=== PATIENT | male | born 1960 | race Caucasian/White ===

== ENCOUNTER 2021-12-20 08:35 | Observation (INO) ==
[~2021-12-20 08:35] MED LIST: LIDOCAINE 1% LOCAL 20 ML VIAL ONE
[2021-12-20] MEDS ORDERED: HEPARIN (PORCINE) 1000 UNIT/ML 10 ML (CATH LAB USE ONLY) ONE (08:50)
[2021-12-20] MEDS ORDERED: niCARdipine HCL INJ 2.5 MG/ML 10 ML AMP ONE (08:50)
[2021-12-20] MEDS ORDERED: MIDAZOLAM HCL 1 MG/ML 2ML VIAL ONE (08:50)
[2021-12-20] MEDS ORDERED: NITROGLYCERIN/D5W 100MCG/ML 20ML SYR ONE (08:51)
[2021-12-20] MEDS ORDERED: fentaNYL citrate 100 MCG/2 ML VIAL ONE (08:51)
--- NOTE | 2021-12-20 09:55 | History & Physical Bridge Note ---
Date of Service December 20, 2021 History & Physical Bridge Note I have examined the patient, reviewed the History & Physical and in the interval since the performance of the History & Physical I have noted the following changes of clinical significance: no changes noted I explained the risk, benefit and intent of the procedure to the patient and he is willing to proceed.
--- NOTE | 2021-12-20 09:55 | Pre Anesthesia Assessment ---
Date of Service December 20, 2021 Pre Sedation Assessment Vital Signs Temp Pulse Resp BP Pulse Ox 12/20/21 08:40 36.7 C 78 20 164/96 H 98 Pre-Sedation Airway Assessment Smoking Status: Former smoker Hx Sleep Apnea: No Short, Thick Neck: No Thyromental Distance: > or= 3.5 Finger Breadths Oral Cavity: + WNL Mallampati Class: II ASA: ASA2 NPO Status Date of Last Intake of Fluids: 12/19/21 Time of Last Intake of Fluids: 21:30 Date of Last Intake of Solid Food: 12/19/21 Time of Last Intake of Solid Foods: 21:30 Notes The planned sedation has been discussed with the patient. Informed Consent was obtained. I have identified the patient, determined the appropriateness of sedation and have assessed the patient immediately prior to the procedure. All medicine(s) and interventions are by my order.
[2021-12-20] MEDS ORDERED: BIVALIRUDIN 250 MG VIAL (CATH LAB ONLY) ONE (10:22)
[2021-12-20] MEDS ORDERED: ATROPINE SULFATE 0.1 MG/ML 10ML SYR IV ONE (10:24)
--- NOTE | 2021-12-20 10:41 | Cardiac Catheterization ---
Date of Service December 20, 2021 Cardiac Cath Report Cardiac Cath Report Procedure: 1. Left heart catheterization 2. Coronary angiography 3. Left ventriculogram History: This is a 61-year-old male patient with a strong family history of heart disease at an early age. Starting in June he has been having episodes of left chest and left arm discomfort with queasiness and diaphoresis. After few minutes his discomfort is usually gone. He has a ZIO monitor placed as an outpatient that showed bradycardia during these events and he was referred to electrophysiology who felt it best to exclude ischemic heart disease. He was referred for cardiac catheterization. Procedure summary: After informed consent was obtained patient was brought to the cardiac catheterization lab where access was obtained using a retrograde Salinger technique from the right femoral artery. Preformed 5 [place] diagnostic catheters were utilized for the coronary angiograms. A 5 [place] pigtail catheter was utilized for the left heart pressures and left ventriculogram. Following the procedure the patient underwent coronary intervention and was admitted in stable condition. ACC data: Start time 10:10 AM End time 10:30 AM Opening aortic pressure 125/94 Closing aortic pressure 144/87 LV pressure 137/4 Sedation 1 mg intravenous Versed IV fluid 100 cc normal saline Contrast 97 cc of Optiray Fluoroscopy time 5.8 minutes Radiation 695 mGy DAP 51.21 Das per centimeter squared Right dominant system AUC score 9 Coronary angiography: Selective injections into the left coronary artery revealed the left main trunk to be patent. The left circumflex artery is small. It has a small first marginal and a small second marginal. There are luminal regularities and at the origin of the second marginal there is a 50% eccentric stenosis. The LAD has nonobstructive disease proximal and mid with the remainder the artery being widely patent. There is a large first diagonal branch which is patent. Selective injections of the right coronary artery reveal it to be large and dominant. In the midportion of the right coronary artery there is a concentric 7080% stenoses. In the proximal right coronary artery there is nonobstructive disease reaching may be 30 to 50%. There is a posterior lateral branch distally in the right coronary artery that has a concentric 50 to 60% stenoses. Left ventriculogram: The left ventricle is of normal size with normal systolic function. Mitral valve is competent. The aortic root and ascending aorta have normal morphology and diameter. Summary: I believe the culprit lesion for this patient's symptoms is the mid right coronary artery stenosis. The right coronary artery is hyperdominant and I believe this is causing his symptoms. Recommendations: Coronary intervention on the right coronary artery.
[2021-12-20] MEDS ORDERED: CLOPIDOGREL BISULFATE 300 MG TAB ONE (11:07)
--- NOTE | 2021-12-20 11:09 | Post Anesthesia Assessment ---
Date of Service December 20, 2021 Post Sedation Assessment Vital Signs Temp Pulse Resp BP Pulse Ox 12/20/21 08:40 36.7 C 78 20 164/96 H 98 Recovery Score Activity: Moves 4 extremities Respiration: Deep Breath/Cough Circulation: +/-20% PreAnes Value Consciousness: Fully Awake Oxygen Saturation: > 92% On Room Air Discharge Sedation Level of Care: Fast Track Phase II Post Sedation Plan On clinical assessment, the patient appears to have tolerated the sedation without complications. Patient is recovering as anticipated. Patient will continue to be monitored by nursing and may be discharged when sedation discharge criteria are met per below protocol. Upon Completions of procedure up to 15 minutes continue every 5 minute vital signs and the P.A.R. score; then discharge to a Phase I or Fast Track to Phase II per the following guidelines: * Discharge Patient to appropriate Phase II area if PAR is 8 or greater or return to pre- procedure baseline. The post - procedure orders will be as directed. * If PAR score is less than 8 or not return to pre-procedure baseline then patient will follow Phase I monitoring till PAR is reached for Phase II. The Phase I may be done in procedure room or may call to secure a Phase I area. * If naloxone or flumazenil are used for reversal, hold in Phase I for continued monitoring from when last reversal dose was given for a minimum of 60 minutes or longer pending the nurse and/or physician discretion of patient condition before discharge to Phase II. Please call the Sedation Physician to re-evaluate and complete post-note for discharge to Phase II area. Do NOT discharge from procedure sedation or Phase 1 until post- sedation evaluation note is complete by procedure /sedation MD Sedation Discharge Instructions to be given to the patient at discharge to home.
--- NOTE | 2021-12-20 11:15 | Cardiac Catheterization ---
ACC Data: Product Specialist Cardiac Status Clinical evaluation leading to the procedure CAD Presenation: Unstable angina Anginal Classification: CCS II Diagnostic Physicians Name: Armen Nino MD Closure Device Recommendations: Medical Therapy and/or Counseling and PCI without planned CABG Cardiac Cath Procedure Full Procedure Date December 20, 2021 Pre-Procedure Diagnosis Pre-Procedure Diagnosis: CAD AUC Score AUC Score: 9 Post-Procedure Diagnosis Post-Procedure Diagnosis: Successful PCI Procedure(s) Performed Procedure(s) Performed: Coronary Angiography and Drug Eluting Stent Ent Nurse Armen Nino MD Estimated Blood Loss Estimated Blood Loss: None Summary of Findings Please see the details of full cardiac catheterization report for diagnostic procedure. He was found to have a severe mid right coronary artery lesion of up to 90% severity, had successful percutaneous intervention performed with placement of 3.5 mm x 23 mm Xience drug-eluting stent, the stent was postdilated with 4 mm noncompliant balloon with excellent angiographic results. Hemodynamics Rest Ao:: 129/76/99 Final Ao: 121/76/ LV: 137/4/27 Recommendations Recommendations: Medical Therapy and/or Counseling and PCI without planned CABG Radiation Exposure (mGy) 1619 Contrast (mls) 137 I attest to the content of the Intraoperative Record and any orders documented therein. Any exceptions are noted below. PG Care Time/CCT Total # of Minutes Spent Total Time Spent with Patient: Total time spent is greater than 50% in coordination of care (as documented) at patient's floor/unit and/or counseling patient:
[2021-12-20] MEDS ORDERED: ACETAMINOPHEN 325 MG TAB PO PRN (11:29)
[2021-12-20] MEDS ORDERED: ONDANSETRON INJ 2 MG/ML 2 ML VIAL IV PRN (11:29)
--- NOTE | 2021-12-20 11:52 | History & Physical Report ---
Date of Service December 20, 2021 Assessment & Plan (1) CAD (coronary artery disease): Plan: - Admit to PCU s/p cardiac cath - 90 % occlusion of the RCA, s/p 3.5 mm x 23 mm Xience [place] - Trend cardiac biomarkers Q6H - EKG reviewed, check am ekg -Consult cardiology, can obtain 2 D echo if wanted per cardiology - PT/OT consulted - Medications per Cardiology : Cont BB, KHADIJAH, statin, aspirin - Plavix 75 mg daily (2) HTN (hypertension): Plan: -Cont triamterene/hctz (3) HLD (hyperlipidemia): Plan: - High intensity statin therapy per cardiology (4) GERD (gastroesophageal reflux disease): Plan: - MVI (5) Vitamin D deficiency: Plan: - Cont multivitamin daily (6) Prediabetes: Plan: - Check lipids and a1c with am labs, last a1c was 5.7 in Apr 2021. (7) Tobacco use disorder: Plan: - Cessation encouraged, pt reports smoking 3 ppd x 20 years, then dropped to 0.75 packs for 20 years, and quit 4 months ago. Also quit chewing tobacco at the same time. DVT ppx: Teds, scds CODE: Full Dispo: From home, likely to remain in the hospital x 1-2 days History of Present Illness Chief Complaint: Cardiac complaints Primary Care Provider: Micky Coley MD This is a 61 yo M with PMhx of HTN, HLD, prediabetes, MDD, Vit D deficiency, osteoarthritis who presented for scheduled outpaitent cardiac catheterization. Starting in June he has been having episodes of left chest and left arm discomfort with queasiness and diaphoresis. After few minutes his discomfort is usually gone. He has a ZIO monitor placed as an outpatient that showed bradycardia during these events and he was referred to electrophysiology who felt it best to exclude ischemic heart disease. He was referred for cardiac catheterization. He has strong family history of cardiac disease with father and paternal grandfather of cardiac issues in their 60s. Pt underwent elective R radial access point for heart catheterization today by Dr. Nino. Pt was recommended to be kept for observation overnight. Pt and his are present during examination. He denies any acute complaints currently and feels well. No chest pain, shortness of breath, heaviness, palpitations. 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 Admits to tobacco use history, but quit smoking and chewing 4 months ago. Allergies Allergy/AdvReac Type Severity Reaction Status Date / Time No Known Allergies Allergy Mild Verified 12/20/21 08:53 Home Medications Medication Instructions Recorded Confirmed Type Multivitamin 1 tab PO DAILY #0 06/07/08 12/20/21 History ASPIRIN (ASPIRIN EC) 81 mg PO DAILY #0 03/16/15 12/20/21 History ATORVASTATIN (LIPITOR) 80 mg PO DAILY #0 tab 03/16/15 12/20/21 History Bupropion (Wellbutrin Sr) 150 mg PO BID #0 tab 03/16/15 12/20/21 History CHOLECALCIFEROL (Vitamin D) 1,000 inter.unit PO DAILY #0 tab 03/16/15 12/20/21 History Fluticasone Propionate (Nasal) 2 spry LAOVN DAILY #0 03/16/15 12/20/21 History (Flonase Allergy Relief) Ibuprofen (Motrin) 600 mg PO TID PRN #15 tab 03/16/15 12/20/21 History Triamterene/Hctz (Dyazide 37.5 mg PO DAILY 30 Days #30 cap 03/16/15 12/20/21 History 37.5MG/25MG) montelukast 10 mg tablet 10 mg PO DAILY 12/20/21 12/20/21 History Past Med/Surg History Medical History (Updated 12/20/21 @ 11:50 by Melodie Horner PA-C) CAD (coronary artery disease) Normal colonoscopy Osteoarthritis Prediabetes Surgical History (Updated 12/20/21 @ 13:27 by Melodie Horner PA-C) S/P nasal polypectomy Family History Father Heart disease Grandfather (Paternal) Heart disease Mother COPD (chronic obstructive pulmonary disease) Social History Smoking Status: Former smoker Smoking End Date: 09/2021; Hx Alcohol Use: No Hx Substance Use: Yes Preferred Language: Croatian Communication Ability: Effective Wrapper And Preserver Required: No Beliefs That Will Affect Care: None Current Living Situation: Spouse Feels Safe at Home: Yes Assistive Devices: None Review of Systems Review of Systems: Constitutional: No fever, sweats or chills Eyes: No diplopia, no worsening or blurred vision ENT: normal hearing, no trouble swallowing Respiratory: No cough, sputum, dyspnea at rest or on exertion Cardiovascular: No chest pain, tightness or palpitations Abdomen: No pain, nausea, vomiting, diarrhea or constipation Musculoskeletal: No joint pain, calf pain, swelling Neurologic: No weakness, numbness/tingling, or balance problems Psychiatric: No anxiety or depression Skin: No rash or itch Physical Exam Physical Exam: General: awake, alert, no apparent distress Head: Normocephalic, atraumatic ENT: PERRL, EOMI, no pharyngeal exudate, mucous membranes moist Chest: Clear to auscultation, on room air, no adventitious breath sounds Cardiac: Regular rate and rhythm, no murmur, no JVD, normal peripheral pulses, good capillary refill Abdominal: NABS x 4 quadrants, soft, nondistended, nontender to palpation, no rebound or guarding Extremities: TR band right wrist, otherwise normal inspection, no peripheral edema or erythema, calfs nontender to palpation Psych: Normal mood and affect Neuro: AAO x 3, strength intact bilaterally and rated 5/5, no motor deficits, speech is clear, no peripheral sensory deficits Results & Data Results & Data ([facility]) Vital Signs (Past 12 Hours) Vital Signs Temp Pulse Resp BP Pulse Ox 12/20/21 11:31 63 17 131/82 97 12/20/21 11:16 65 17 141/91 H 97 12/20/21 08:40 36.7 C 78 20 164/96 H 98 Code Status & VTE Plan Code Status Full code VTE Prophylaxis Plan VTE Prophylaxis will be ordered: Yes Supervising Physician Co-Signing Physician Notes I saw this patient with the physician assistant golf course superintendent, I participated in the history, physical, review of systems, and physical exam. I reviewed the medications with the patient and the physician assistant golf course superintendent and helped reconcile the medications. I helped take a detailed family and social history as well. I formulated the assessment and plan personally with the physician assistant golf course superintendent and went over it with the patient. ROS-No Headache, No Visual Changes, No Nausea, No Vomiting, No Fever, No Chills, No Neck Pain or Stiffness, No Chest Pain, No Palpitations, No SOB, No VITALE, No Cough, No Sputum, No Wheezing, No Abdominal Pain, No Diarrhea, No Hematemesis, No Hemoptysis, No Unexpected Weight Loss, No Flank pain, No Melena, No Hematochezia, No Frequency, No Urgency, No Burning, No Hematuria, No Rashes, No Diaphoresis. Appetite is Normal Physical Exam Gen-AAO x 3, NAD, Afebrile Head-NCAT, EOMI, PERRLA, Anicteric Sclera, No Posterior Pharyngeal Erythema Neck-Supple, No JVD, No Thyromegaly, No Masses, No LAD, No Bruits Lungs-Clear to Auscultation Bilaterally, No Rales, No Rhonchi, No Wheezing, No Crepitus Chest-No S4, +S1, +S2, No S3, No Murmurs, No Rubs, No Gallops, No Ectopy Abdomen-Soft, Bowel Sounds Present, Non Tender, Non Distended, No Hepatomegaly, No Splenomegaly, No Palpable Masses, No Rebound, No Rigidity, No Guarding Musculoskeletal-Full Range of Motion Bilaterally, No CVAT Extremities-No Cyanosis, No Clubbing, No Edema Nuero-Cranial Nerves II-XII grossly intact, Motor WNL, DTRs WNL, Strength WNL, Non Focal Psych-Normal Mood
[2021-12-21 02:57] LABS: Albumin Globulin Ratio 1.6 (0.9-2); Albumin Level 3.8 gm/dl (3.4-5.0); Bilirubin,Total 0.9 mg/dl (0.2-1.0); Calcium 8.9 mg/dl (8.5-10.1); Chol HDL Ratio 3.5 (0-5); Est GFR (African American) 101.7 ml/min; Est GFR (Non-African American) 87.8 ml/min; Globulin 2.4 gm/dl (2.5-4.0); Magnesium 1.9 mg/dl (1.7-2.4); Potassium 3.6 mmol/L (3.5-5.1); Total Protein 6.2 gm/dl (6.0-8.3)
[2021-12-21 08:05] LABS: Hematocrit (blood only) 42.4 % (42-52); Hemoglobin 14.8 g/dL (14.0-18.0); Mean Corpuscular Hemoglobin 30.5 pg (25-34); Mean Corpuscular Hgb Conc 34.9 g/dL (32-36); Mean Corpuscular Volume 87.2 fL (80-100); Mean Platelet Volume 8.5 fL (7.4-10.4); Platelet Count 252 K/uL (130-400); RDW Coefficient of Variation 12.7 % (11.5-14.5); RDW Standard Deviation 40.6 fL (36.4-46.3); Red Blood Count 4.86 M/uL (4.7-6.1); White Blood Count 8.74 K/uL (4.8-10.8)
[2021-12-21 08:43] LABS: Estimated Average Glucose 111 mg/dl; Hemoglobin A1C 5.5 % (4.5-5.6)
[2021-12-21] MEDS ORDERED: ATORVASTATIN 40 MG TAB PO SCH (09:00)
[2021-12-21] MEDS ORDERED: ASPIRIN 81 MG ECTAB PO SCH (09:00)
[2021-12-21] MEDS ORDERED: TRIAMTERENE/HCTZ 37.5/25MG CAP PO SCH (09:00)
[2021-12-21] MEDS ORDERED: ASPIRIN 325 MG ECTAB PO SCH (09:00)
[2021-12-21] MEDS ORDERED: CLOPIDOGREL BISULFATE 75 MG TAB PO SCH (09:00)
--- NOTE | 2021-12-21 09:04 | Cardiology Progress Note ---
Date of Service December 21, 2021 Assessment & Plan (1) CAD (coronary artery disease): (2) HLD (hyperlipidemia): (3) HTN (hypertension): (4) Stented coronary artery: Plan: The patient will be discharged today. I have arranged follow-up through our clinic. He should return home on dual antiplatelet therapy as well as high-dose atorvastatin. After discharge, consideration should be given for familial hypercholesterolemia and the patient will be evaluated. Admission and Anticipated Discharge Date Admission Date: December 20, 2021 Subjective The patient had an uneventful night. No complaints this morning. Review of Systems Review of Systems: Review of Systems: See HPI for pertinent positives. All other 10 point review of systems are negative. Physical Exam Physical Exam: General: no acute distress and stated age Head: normocephalic, no masses, lesions, tenderness or abnormalities Eyes: conjunctiva are pink and non-injected, sclera clear Neck: supple, no adenopathy, no bruits, normal jugular venous pulse, no hepatojugular reflux Chest: normal shape and normal respiratory effort Lungs: clear to auscultation and percussion Cardiac Exam: - regular rate & rhythm, no murmurs gallops or rubs - normal S1, normal S2 Pulses: 2(+) throughout Abdomen: abdomen soft, non-tender, no abnormal masses and no hepatosplenomegaly Musculoskeletal: no gait disturbance, no joint inflammation, no deforming arthritis Extremities: no edema and no cyanosis, cath site looks good Neuro: grossly normal exam Results & Data ([facility]) Vital Signs (Past 12 Hours) Vital Signs Temp Pulse Pulse Resp BP Pulse Ox 12/21/21 08:07 36.5 C 61 20 128/79 98 12/21/21 07:31 62 12/21/21 04:00 36.4 C L 78 18 122/82 99 12/20/21 23:56 62 12/20/21 23:00 36.5 C 63 18 126/83 96 Laboratory Results Laboratory Results - last 24 hr 12/20/21 12/21/21 12/21/21 19:42 07:48 07:48 WBC 8.74 RBC 4.86 Hgb 14.8 Hct 42.4 MCV 87.2 MCH 30.5 MCHC 34.9 RDW Std Deviation 40.6 RDW Coeff of Eder 12.7 Plt Count 252 MPV 8.5 Sodium Potassium Chloride Carbon Dioxide Anion Gap BUN Creatinine Est Cr Clr Drug Dosing Est GFR ( Amer) Est GFR (Non-Af Amer) BUN/Creatinine Ratio Glucose Estimat Average Glucose 111 Hemoglobin A1c 5.5 Calcium Magnesium Total Bilirubin AST ALT Alkaline Phosphatase Troponin I High Sens 178.7 H* Total Protein Albumin Globulin Albumin/Globulin Ratio Triglycerides Cholesterol LDL Cholesterol, Calc VLDL Cholesterol, Calc HDL Cholesterol Cholesterol/HDL Ratio 12/21/21 12/21/21 12/21/21 07:48 Unknown Unknown WBC RBC Hgb Hct MCV MCH MCHC RDW Std Deviation RDW Coeff of Eder Plt Count MPV Sodium 133 L Potassium 3.6 Chloride 101 Carbon Dioxide 24 Anion Gap 8 BUN 15 Creatinine 0.94 Est Cr Clr Drug Dosing 89.0 Est GFR ( Amer) 101.7 Est GFR (Non-Af Amer) 87.8 BUN/Creatinine Ratio 16.0 Glucose 83 Estimat Average Glucose Hemoglobin A1c Calcium 8.9 Magnesium 1.9 Total Bilirubin 0.9 AST 24 ALT 31 Alkaline Phosphatase 64 Troponin I High Sens 650.0 H* D 822.2 H* D Total Protein 6.2 Albumin 3.8 Globulin 2.4 L Albumin/Globulin Ratio 1.6 Triglycerides 98 Cholesterol 155 LDL Cholesterol, Calc 91 VLDL Cholesterol, Calc 20 HDL Cholesterol 44 Cholesterol/HDL Ratio 3.5 Medications Administered Current Inpatient Medications Acetaminophen (Acetaminophen 325 Mg Tab) 650 mg PO Q4H PRN PRN Reason: Moderate Pain Stop: 01/19/22 11:28 Aspirin (Aspirin 81 Mg Ectab) 81 mg PO [facility] Stop: 01/20/22 08:59 Atorvastatin Calcium (Atorvastatin 40 Mg Tab) 80 mg PO [facility] Stop: 01/20/22 08:59 Clopidogrel Bisulfate (Clopidogrel Bisulfate 75 Mg Tab) 75 mg PO [facility] Stop: 01/20/22 08:59 Ondansetron HCl (Ondansetron Inj 2 Mg/Ml 2 Ml Vial) 4 mg IV Q4H PRN PRN Reason: Nausea And Vomiting Stop: 01/19/22 11:28 Triamterene/Hydrochlorothiazide (Triamterene/Hctz 37.5/25mg Cap) 1 cap PO [facility] Stop: 01/20/22 08:59
--- NOTE | 2021-12-21 09:17 | Electrocardiogram Report ---
Test Reason : Blood Pressure : / mmHG Vent. Rate : 064 BPM Atrial Rate : 064 BPM P-R Int : 160 ms QRS Dur : 096 ms QT Int : 402 ms P-R-T Axes : 058 -09 049 degrees QTc Int : 414 ms Normal sinus rhythm Cannot rule out Old Inferior infarct Abnormal ECG When compared with ECG of 28-DEC-2008 10:44, Minimal criteria for Inferior infarct are now Present Confirmed by Terrence Hendrix ([id number]) on 12/21/2021 9:17:17 AM Referred By: Meaghan Wadsworth Confirmed By:Terrence Hendrix
--- NOTE | 2021-12-21 12:28 | Hospitalist Progress Note ---
Date of Service December 21, 2021 Assessment & Plan (1) CAD (coronary artery disease): Plan: Coronary artery disease S/P PCI: [place]ER[place]T to RCA Continue aspirin, Plavix, statin Appreciate Cardiology Input Needs follow-up with cardiology upon discharge (2) HTN (hypertension): Plan: -Continue triamterene/hctz (3) HLD (hyperlipidemia): Plan: Lipitor (4) GERD (gastroesophageal reflux disease): Plan: -Stable (5) Vitamin D deficiency: Plan: - Continue supplement (6) Prediabetes: Plan: HbA1C: 5.5 (7) Tobacco use disorder: Plan: - Cessation encouraged, pt reports smoking 3 ppd x 20 years, then dropped to 0.75 packs for 20 years, and quit 4 months ago. DVT Px: SCDs CODE STATUS: Full Code Admission and Anticipated Discharge Date Admission Date: December 20, 2021 Subjective Patient is seen and examined at bedside States feeling well today Denies any chest pain, shortness of breath, dizziness, nausea, Abd pain Discussed with cardiology today Eager to get discharged Review of Systems Review of Systems: All systems reviewed & are unremarkable except as noted in Subjective Physical Exam Physical Exam: Physical Exam: Vitals signs as noted above General Appearance:Moderately built and nourished, no apparent distress Head: normocephalic, Atraumatic Eyes: normal inspection, EOMI Neck: supple, Trachea midline Respiratory/Chest: Normal breath sounds, CTA, No accessory muscle use Cardiovascular: S1, S2, No murmur Abdomen/GI:Soft, Non tender, Bowel sounds present Extremities/Musculoskeletal:normal inspection, no edema Neurologic/Psych:AAOX3, grossly no focal neurological deficits Skin: normal color, warm Results & Data Results & Data ([facility]) Vital Signs (Past 12 Hours) Vital Signs Temp Pulse Pulse Resp BP Pulse Ox 12/21/21 12:20 36.4 C L 83 18 121/85 96 12/21/21 08:07 36.5 C 61 20 128/79 98 12/21/21 07:31 62 12/21/21 04:00 36.4 C L 78 18 122/82 99 Laboratory Results Short CBC 12/21/21 Range/Units 07:48 WBC 8.74 (4.8-10.8) K/uL Hgb 14.8 (14.0-18.0) g/dL Hct 42.4 (42-52) % Plt Count 252 (130-400) K/uL BMP 12/21/21 Unknown Sodium 133 L Potassium 3.6 Chloride 101 Carbon Dioxide 24 BUN 15 Creatinine 0.94 Glucose 83 Calcium 8.9 Liver Function 12/21/21 Range/Units Unknown Total Bilirubin 0.9 (0.2-1.0) mg/dl AST 24 (13-39) U/L ALT 31 (7-52) U/L Alkaline Phosphatase 64 (34-104) U/L Albumin 3.8 (3.4-5.0) gm/dl
--- NOTE | 2021-12-21 12:35 | Discharge Summary ---
Date of Service December 21, 2021 Admission HPI Per Admitting Provider This is a 61 yo M with PMhx of HTN, HLD, prediabetes, MDD, Vit D deficiency, osteoarthritis who presented for scheduled outpaitent cardiac catheterization. Starting in June he has been having episodes of left chest and left arm discomfort with queasiness and diaphoresis. After few minutes his discomfort is usually gone. He has a ZIO monitor placed as an outpatient that showed bradycardia during these events and he was referred to electrophysiology who felt it best to exclude ischemic heart disease. He was referred for cardiac catheterization. He has strong family history of cardiac disease with father and paternal grandfather of cardiac issues in their 60s. Pt underwent elective R radial access point for heart catheterization today by Dr. Nino. Pt was recommended to be kept for observation overnight. Pt and his are present during examination. He denies any acute complaints currently and feels well. No chest pain, shortness of breath, heaviness, palpitations. 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 Admits to tobacco use history, but quit smoking and chewing 4 months ago. Admission Exam Per Admitting Provider Physical Exam Physical Exam: General: awake, alert, no apparent distress Head: Normocephalic, atraumatic ENT: PERRL, EOMI, no pharyngeal exudate, mucous membranes moist Chest: Clear to auscultation, on room air, no adventitious breath sounds Cardiac: Regular rate and rhythm, no murmur, no JVD, normal peripheral pulses, good capillary refill Abdominal: NABS x 4 quadrants, soft, nondistended, nontender to palpation, no rebound or guarding Extremities: TR band right wrist, otherwise normal inspection, no peripheral edema or erythema, calfs nontender to palpation Psych: Normal mood and affect Neuro: AAO x 3, strength intact bilaterally and rated 5/5, no motor deficits, speech is clear, no peripheral sensory deficits Principal Diagnosis Coronary artery disease Discharge Data Allergies Allergy/AdvReac Type Severity Reaction Status Date / Time No Known Allergies Allergy Mild Verified 12/20/21 08:53 Consultations 12/20/21 11:27 Consult Cardiology Routine Procedures Performed Operation Date: 12/20/21 09:30 Actual Procedures p Cineradiography w/Routine Exam - Luis Hernandez, DO s Cath, Left with Cors and Vent - Luis Hernandez, DO s Drug Eluting Stent SGl Vessel - Armen Nino MD Ordered Studies 12/20/21 06:36 CL Cath Imgs for PACS use only Routine Hospital Course (1) CAD (coronary artery disease): Coronary artery disease S/P PCI: [place] to RCA Continue aspirin, Plavix, statin Appreciate Cardiology Input Needs follow-up with cardiology upon discharge (2) HTN (hypertension): -Continue triamterene/hctz (3) HLD (hyperlipidemia): Lipitor (4) GERD (gastroesophageal reflux disease): -Stable (5) Vitamin D deficiency: - Continue supplement (6) Prediabetes: HbA1C: 5.5 (7) Tobacco use disorder: - Cessation encouraged, pt reports smoking 3 ppd x 20 years, then dropped to 0.75 packs for 20 years, and quit 4 months ago. DVT Px: SCDs CODE STATUS: Full Code Total Time Total Time Spent Total Time Spent (In Minutes): 40 minutes Discharge Plan Discharge Items Patient Disposition: Home - Self-Care Reason For Visit: Chest Pain Discharge Diagnosis: Coronary artery disease Activity: Per Instructions section Exercise/Sports: Wait until after follow-up appointment Non-emergency contact: Primary Care Provider and Television Script Writer Call non-emergency contact if: you have any medication questions, your symptoms worsen, your pain is concerning for you and you have a fever Follow-up/Referrals: Micky Coley MD [Primary Care Provider] - (Date & Time 12/28/2021 11:10 AM Provider [facility] ) Diet: Heart Healthy Add Attending Provider Instructions: ACTIVITY RECOMMENDATIONS: It is common to feel weak and fatigue for a few days. * Do not drive or operate any motorized equipment for the next three days. * Limit stair usage (2 or 3 trips a day only) for the next three days. * Do not lift anything heavier than 10 pounds for the next three days. * Do not engage in vigorous exercise or any sports for the next five days. * You may shower the day after your procedure, but do not immerse the area for three days. Cleanse the site gently with soap and water. SPECIAL CARE INSTRUCTIONS: * You may replace the pressure dressing or band-aid the morning after the procedure. * After your procedure, it is normal to have a small bruise or small lump at the site. Examine your site daily for any change in the bruise or lump, redness, swelling, drainage or numbness. Notify your doctor if any change. BLEEDING: * If there is a small amount of bleeding at the site, lie down and apply firm pressure with a clean cloth for ten minutes. When the bleeding stops, lie quietly keeping the procedure limb straight for six hours. Notify your doctor as soon as possible. * If the bleeding does not stop after ten minutes or if there is a large amount of bleeding or spurting, call 911 immediately. Continue to lie down and hold firm pressure until help arrives. SKIN IRRITATION: * You may experience some redness and/or swelling in the area where radiation was administered. If any skin irritation occurs, please contact your family physician. FOLLOW UP VISIT: Keep any scheduled doctor appointments. Addtl Health Education Coordinator Provider Instructions: Follow-up with your primary care physician on 12/28/2021 11:10 AM Follow-up with your hose stripper Dr. Hernandez in 2 weeks. ---Quit smoking Tobacco use as advised. Seek immediate medical attention if your symptoms reoccur or worsen Please take all medications as instructed on discharge list below. Please call if you have any questions or problems. You can reach a [facility] hospitalist on duty at [facility] 24 hours a day by calling [phone] Home Care: * Take your medications exactly as directed. Don't skip doses. * Remember that recovery after a heart attack takes time. Plan to rest for at lease 4-8 weeks while you recover. Then return to normal activity when your doctor says it's okay. * Ask your doctor about joining a heart rehabilitation program. * Tell your doctor if you are feeling depressed. Feelings of sadness are common after a heart attack, but it is important that you speak to someone if you are feeling overwhelmed by these feelings. * If you are having chest pain, call 911 for an ambulance. Do NOT drive yourself to the hospital. * Ask your family members to learn CPR. * Learn to take your own blood pressure and pulse. Keep a record of your results. Ask your doctor when you should seek emergency medical attention. He or she will tell you which blood pressure reading is dangerous. Lifestyle Changes: * Maintain a healthy weight. Get help to lose any extra pounds. * Cut back on salt. * Limit canned, dried, packaged, and fast foods. * Don't add salt to your food. * Season foods with herbs instead of salt when you cook. * Break the smoking habit. Enroll in a stop-smoking program to improve your chances of success. * Limit fatty foods. * Ask your doctor about having your lipid levels checked regularly. * Build up your activity according to your doctor's recommendation. * Ask your doctor when it's okay to resume sexual activity. * Tell your doctor about any erectile dysfunction (ED) medication you are taking. Some ED medications are not safe if you take certain heart medications. * Try to manage stress. Follow Up: It is important for you to keep your follow up appointments with your medical provider. Pending Studies at Discharge: No Stand-Alone Forms: [facility], Smoking Cessation Medications and DC Order Prescriptions: New clopidogrel 75 mg Tablet 75 mg PO QAM Qty: 30 RF: 1 Continued Multivitamin tablet 1 tab PO DAILY Qty: 0 RF: 0 Bupropion (Wellbutrin Sr) 150 MG EXT REL TAB 150 mg PO BID Qty: 0 RF: 0 Triamterene/Hctz (Dyazide 37.5MG/25MG) capsule 37.5 mg PO DAILY 30 Days Qty: 30 RF: 3 CHOLECALCIFEROL (Vitamin D) 1,000 INTER.UNIT tablet 1,000 inter.unit PO DAILY Qty: 0 RF: 0 ATORVASTATIN (LIPITOR) 80 MG tablet 80 mg PO DAILY Qty: 0 RF: 0 Fluticasone Propionate (Nasal) (Flonase Allergy Relief) 50 MCG/ACT SPR 2 spry [place] DAILY Qty: 0 RF: 0 ASPIRIN (ASPIRIN EC) 81 MG tablet 81 mg PO DAILY Qty: 0 RF: 0 montelukast 10 mg Tablet 10 mg PO DAILY RF: 0 Discharge Orders: Discharge Order (Routine); Ordered 12/21/21 Ordered By: Refugio Lees Admission Data Admit Date/Time: 12/20/21 12:53 Attending Provider: Refugio Lees Admit Provider: Abdi Duque Primary Care Provider: Micky Coley Other Providers: Luis Hernandez
== END 2021-12-21 13:00 | disposition home or self-care (01) ==
LOC: CC 08:35 → SUATTDRO 11:24 → INTOOBSV 11:24 → 2S 11:24